=== PATIENT | male | born 1960 | race Caucasian/White ===

== ENCOUNTER → 2020-07-23 | Outpatient (CLI) | payer MEDICARE ==
--- NOTE | 2020-07-24 12:35 | US ---
EXAMINATION TYPE: US carotid duplex BILAT DATE OF EXAM: 07/23/2020 COMPARISON: NONE CLINICAL HISTORY: I63.9 Stroke. Stroke per order. Unable to obtain patient's history. Any possible pa st surgeries unknown. EXAM MEASUREMENTS: RIGHT: Peak Systolic Velocity (PSV) cm/sec ----- Right CCA: 83.9 ----- Right ICA: 101.3 ----- Right ECA: 207.9 ICA/CCA ratio: 1.2 RIGHT: End Diastole cm/sec ----- Right CCA: 21.2 ----- Right ICA: 32.7 ----- Right ECA: 37.9 LEFT: Peak Systolic Velocity (PSV) cm/sec ----- Left CCA: 51.7 ----- Left ICA: 58.6 ----- Left ECA: 121.4 ICA/CCA ratio: 1.1 LEFT: End Diastole cm/sec ----- Left CCA: 14.7 ----- Left ICA: 19.4 ----- Left ECA: 18.9 VERTEBRALS (direction of flow): Right Vertebral: Antegrade Left Vertebral: Antegrade Rhythm: Normal Elevated velocities within the right ECA. Patient unable to give any history; hyperechoic appearance along carotid wall. IMPRESSION: 1. Atheromatous plaquing without significant flow-limiting stenosis. Criteria for Assigning % of Stenosis / Diameter reduction (Estimation based on the indirect measurements of the internal carotid artery velocities (ICA PSV). 1. Normal (no stenosis)=ICA PSV < 125 cm/s: ratio < 2.0: ICA EDV<40 cm/s. 2. Less than 50% stenosis=ICA PSV < 125 cm/s: ratio < 2.0: ICA EDV<40 cm/s. 3. 50 to 69% stenosis=ICA PSV of 125 to 230 cm/s: ration 2.0 ? 4.0: ICA EDV 40-100 cm/s. 4. Greater than 70% stenosis to near occlusion= ICA PSV > 230 cm/s: ratio > 4.0: ICA EDV > 100 cm/s. 5. Near occlusion= ICA PSV velocities may be low or undetectable: variable ratio and ICA EDV. 6. Total occlusion=unable to detect flow.
== END | disposition home or self-care (01) ==
LOC: RADUSWWP 16:52
PROVIDERS: ATTEND Internal Medicine Geriatric Medicine
DX: I67.2 Cerebral atherosclerosis (principal)
CPT/HCPCS: 93880

== ENCOUNTER 2021-04-01 18:45 | Emergency (ER) | payer MEDICARE ==
[2021-04-01 18:59] VITALS: TEMP 98.1
--- NOTE | 2021-04-01 19:12 | ED ---
General Adult HPI - General Chief complaint: Chest Pain Stated complaint: Seizure, Cardiac Time Seen by Provider: 04/01/21 18:50 Source: patient, EMS Mode of arrival: EMS Limitations: altered mental status - History of Present Illness Initial comments: This is a 60-year-old male with a history of stroke in the past with residual right-sided deficits including right facial droop, right arm weakness, right leg weakness and aphasia who presents emergency department for possible seizure and chest pain. The states that around 5 PM the patient was indicating to her that he was uncomfortable. He appeared very diaphoretic and he was asking her to check his blood pressure. She states he then started pounding in his chest and appeared to be dyspneic. He was then not acting himself and seemed like he was very out of it so she called EMS. When EMS arrived they stated that he was coherent and he was following instructions however in route to the hospital the patient's eyes seem to deviate to the right and then they noted that he was having shaking his eyes. He was given 2.5 mg of Versed through his IV and the symptoms resolved. By the time the patient got to the emergency department he is now somewhat somnolent from the medication and difficult to get any history from. EMS stated that there was questionable EKG changes and he was given a nitro in route as well. The patient is really unable to provide any history at this time. Family states he is on Plavix/ASA. Has been having issues with BP control and increased his Losartan recently. He also had a fall a few days ago however family states he had no head trauma. - Related Data Home Medications Medication Instructions Recorded Confirmed Aspirin EC [Ecotrin Low Dose] 81 mg PO DAILY 04/01/21 04/01/21 Atorvastatin Calcium [Lipitor] 80 mg PO HS 04/01/21 04/01/21 Clopidogrel [Plavix] 75 mg PO DAILY 04/01/21 04/01/21 Cyclobenzaprine [Flexeril] 10 mg PO HS 04/01/21 04/01/21 DULoxetine HCL [Cymbalta] 60 mg PO HS 04/01/21 04/01/21 Folic Acid 1 mg PO DAILY 04/01/21 04/01/21 Ibuprofen [Motrin] 600 mg PO BID 04/01/21 04/01/21 Losartan Potassium [Cozaar] 25 mg PO DAILY 04/01/21 04/01/21 Losartan [Cozaar] 50 mg PO HS 04/01/21 04/01/21 Allergies Allergy/AdvReac Type Severity Reaction Status Date / Time No Known Allergies Allergy Verified 04/01/21 19:19 Review of Systems ROS Statement: Those systems with pertinent positive or pertinent negative responses have been documented in the HPI. ROS Other: All systems not noted in ROS Statement are negative. Past Medical History Past Medical History: CVA/TIA History of Any Multi-Drug Resistant Organisms: None Reported Past Psychological History: No Psychological Hx Reported General Exam - General Exam Comments Initial Comments: Constitutional: The patient is quite sleepy however will awaken to voice and follows some commands Appears comfortable Head: Normocephalic atraumatic Eyes: no conjunctival injection No scleral icterus EOMI, the right pupil is proximally 4 mm and reactive, the left pupil appears to be smaller and around 2- 3 mm and reactive, the patient does tend of look to the left more than the right however is able to look to the right Neck: No JVD Supple Heart: Regular rate rhythm normal S1-S2 no murmurs Lungs: Clear to auscultation bilaterally No wheezing No rales Abdomen: Soft nondistended nontender Extremities: Non edematous DP pulses intact Radial pulses intact Neuro: Patient is somnolent but arouses to voice and does follow commands, patient got an obvious right-sided facial droop, pupils are unequal as above, the patient does have a little bit of a leftward gaze however is able to look to the right. He's got spastic weakness in the right upper extremity and weakness in the right lower extremities which is chronic. The patient will hold his left arm up and left leg up off the ground. He will non destructive tester my left hand Psych: Appropriate mood and affect Limitations: altered mental status Course Vital Signs 04/01/21 04/01/21 04/01/21 18:48 19:00 19:30 Temperature 98.1 F Pulse Rate 130 H 129 H 108 H Respiratory 16 10 L 12 Rate Blood Pressure 143/110 153/107 104/57 O2 Sat by Pulse 90 L 97 97 Oximetry 04/01/21 20:00 Temperature Pulse Rate 91 Respiratory 15 Rate Blood Pressure O2 Sat by Pulse 94 L Oximetry - Reevaluation(s) Reevaluation #1: 04/01/21 19:40 CT head appears to have acute hemorrhage in the area of encephalomalacia in L parietal cortex. I do no see any midline shift or evidence for herniation. Page to radiologist to discuss. Reevaluation #2: Repeat EKG showing normal sinus rhythm with a rate of 89. Right bundle branch block is resolved. No ST changes or T-wave inversions. QTC is 481. Other intervals normal. No ectopy. 04/01/21 19:48 04/01/21 20:07 Reevaluation #3: 04/01/21 20:08 Pt currently at MS baseline. GCS 15. Had mild [place]. Spoke with Dr. Loya at [facility] ED who accepted transfer. Requested I speak with neurointerventionalist. Reevaluation #4: 04/01/21 20:[address] Morales who accepts transfer. Pt still at neurologic baseline. Recommends platelets. No other recommendations. EKG Findings - EKG Comments: EKG Findings:: EKG is showing sinus tachycardia with a right bundle-branch block. There does not appear to be any abnormal ST segment changes or T-wave inversions. QTC is 574. QRS is 138. No ectopy. Medical Decision Making - Lab Data Result diagrams: 04/01/21 19:08 04/01/21 19:08 Lab Results 04/01/21 04/01/21 04/01/21 Range/Units 19:08 19:08 19:08 WBC 17.4 H (3.8-10.6) k/uL RBC 4.25 L (4.30-5.90) m/uL Hgb 13.4 (13.0-17.5) gm/dL Hct 42.8 (39.0-53.0) % MCV 100.8 H (80.0-100.0) fL MCH 31.5 (25.0-35.0) pg MCHC 31.3 (31.0-37.0) g/dL RDW 13.6 (11.5-15.5) % Plt Count 315 (150-450) k/uL MPV 8.5 Neutrophils % 74 % Lymphocytes % 18 % Monocytes % 4 % Eosinophils % 2 % Basophils % 1 % Neutrophils # 12.9 H (1.3-7.7) k/uL Lymphocytes # 3.2 (1.0-4.8) k/uL Monocytes # 0.7 (0-1.0) k/uL Eosinophils # 0.3 (0-0.7) k/uL Basophils # 0.1 (0-0.2) k/uL Macrocytosis Slight PT 10.5 (9.0-12.0) sec INR 1.0 (<1.2) APTT 21.1 L (22.0-30.0) sec Sodium 128 L (137-145) mmol/L Potassium 3.3 L (3.5-5.1) mmol/L Chloride 97 L (98-107) mmol/L Carbon Dioxide 17 L (22-30) mmol/L Anion Gap 14 mmol/L BUN 7 L (9-20) mg/dL Creatinine 0.83 (0.66-1.25) mg/dL Est GFR (CKD-EPI)AfAm >90 (>60 ml/min/1.73 sqM) Est GFR (CKD-EPI)NonAf >90 (>60 ml/min/1.73 sqM) Glucose 295 H (74-99) mg/dL Plasma Lactic Acid Joe (0.7-2.0) mmol/L Calcium 8.6 (8.4-10.2) mg/dL Total Bilirubin 0.4 (0.2-1.3) mg/dL AST 33 (17-59) U/L ALT 21 (4-49) U/L Alkaline Phosphatase 85 (38-126) U/L Troponin I (0.000-0.034) ng/mL Total Protein 6.6 (6.3-8.2) g/dL Albumin 4.3 (3.5-5.0) g/dL Serum Alcohol <10 mg/dL 04/01/21 04/01/21 Range/Units 19:08 19:08 WBC (3.8-10.6) k/uL RBC (4.30-5.90) m/uL Hgb (13.0-17.5) gm/dL Hct (39.0-53.0) % MCV (80.0-100.0) fL MCH (25.0-35.0) pg MCHC (31.0-37.0) g/dL RDW (11.5-15.5) % Plt Count (150-450) k/uL MPV Neutrophils % % Lymphocytes % % Monocytes % % Eosinophils % % Basophils % % Neutrophils # (1.3-7.7) k/uL Lymphocytes # (1.0-4.8) k/uL Monocytes # (0-1.0) k/uL Eosinophils # (0-0.7) k/uL Basophils # (0-0.2) k/uL Macrocytosis PT (9.0-12.0) sec INR (<1.2) APTT (22.0-30.0) sec Sodium (137-145) mmol/L Potassium (3.5-5.1) mmol/L Chloride (98-107) mmol/L Carbon Dioxide (22-30) mmol/L Anion Gap mmol/L BUN (9-20) mg/dL Creatinine (0.66-1.25) mg/dL Est GFR (CKD-EPI)AfAm (>60 ml/min/1.73 sqM) Est GFR (CKD-EPI)NonAf (>60 ml/min/1.73 sqM) Glucose (74-99) mg/dL Plasma Lactic Acid Joe 6.0 H* (0.7-2.0) mmol/L Calcium (8.4-10.2) mg/dL Total Bilirubin (0.2-1.3) mg/dL AST (17-59) U/L ALT (4-49) U/L Alkaline Phosphatase (38-126) U/L Troponin I 0.026 (0.000-0.034) ng/mL Total Protein (6.3-8.2) g/dL Albumin (3.5-5.0) g/dL Serum Alcohol mg/dL Disposition Clinical Impression: ICH (intracerebral hemorrhage) Disposition: OTHER INSTITUTION NOT DEFINED Condition: Critical Referrals: Dante Carlson MD [Primary Care Provider] - 1-2 days - Out of Hospital Transfer - Req. Specs Out of Hospital Transfer - Requested Specifics: Other Emergency Center
[2021-04-01 19:19] LABS: Basophils # (A) 0.1 k/uL (0-0.2); Basophils % (A) 1 %; Eosinophils # (A) 0.3 k/uL (0-0.7); Eosinophils % (A) 2 %; HCT 42.8 % (39.0-53.0); HGB 13.4 gm/dL (13.0-17.5); Lymphocytes # (A) 3.2 k/uL (1.0-4.8); Lymphocytes % (A) 18 %; MCH 31.5 pg (25.0-35.0); MCHC 31.3 g/dL (31.0-37.0); MCV 100.8 fL (80.0-100.0); Macrocytosis Slight; Mean Platelet Volume 8.5; Monocytes # (A) 0.7 k/uL (0-1.0); Monocytes % (A) 4 %; Neutrophils # (A) 12.9 k/uL (1.3-7.7); Neutrophils % (A) 74 %; Platelet Count 315 k/uL (150-450); RBC 4.25 m/uL (4.30-5.90); RDW 13.6 % (11.5-15.5); WBC 17.4 k/uL (3.8-10.6)
[2021-04-01 19:31] LABS: ALT 21 U/L (4-49); AST 33 U/L (17-59); African American GFR (CKD) >90 (>60 ml/min/1.73 sqM); Albumin 4.3 g/dL (3.5-5.0); Alcohol <10 mg/dL; Alkaline Phosphatase 85 U/L (38-126); Anion Gap 14 mmol/L; Blood Urea Nitrogen 7 mg/dL (9-20); Calcium 8.6 mg/dL (8.4-10.2); Carbon Dioxide 17 mmol/L (22-30); Chloride 97 mmol/L (98-107); Glucose 295 mg/dL (74-99); Non-African American GFR(CKD) >90 (>60 ml/min/1.73 sqM); Potassium 3.3 mmol/L (3.5-5.1); Sodium 128 mmol/L (137-145); Total Bilirubin 0.4 mg/dL (0.2-1.3); Total Protein 6.6 g/dL (6.3-8.2)
--- NOTE | 2021-04-01 19:40 | XR ---
EXAMINATION TYPE: XR chest 1V portable DATE OF EXAM: 04/01/2021 COMPARISON: NONE HISTORY: Seizure and fall, trauma TECHNIQUE: Single frontal view of the chest is obtained. FINDINGS: The lung volumes are low. Perihilar increased attenuation is present, interstitium appears prominently. There is no evident pneumothorax or pleural effusion. Cardiac mediastinal silhouette wi thin normal limits accounting for technique. IMPRESSION: Difficult to exclude interstitial edema, pneumonia, correlate. Expiratory rotated exam. Follow-up as indicated.
[2021-04-01 19:43] LABS: Partial Thromboplastin Time 21.1 sec (22.0-30.0); Prothrombin Time 10.5 sec (9.0-12.0)
--- NOTE | 2021-04-01 19:47 | CT ---
EXAMINATION TYPE: CT brain wo con DATE OF EXAM: 04/01/2021 COMPARISON: None HISTORY: Altered mental status. CT DLP: 1188.4 mGycm Automated exposure control for dose reduction was used. Helical imaging through the brain. FINDINGS: There are lobular areas of increased attenuation within the patient's encephalomalacia in the left fr ontal brain. Volume loss is present within the left cerebrum, there is ex vacuo phenomenon of the lef t lateral ventricle. Cortical atrophy is present. Periventricular white matter shows patchy low atten uation. IMPRESSION: AMORPHOUS AREAS OF HEMORRHAGE WITHIN PATIENT'S ENCEPHALOMALACIA DUE TO CHRONIC CEREBROVASCULAR ACCIDE NT. 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
[2021-04-01] MEDS ORDERED: levETIRAcetam IV 1,000 MG in SALINE 1 100ML.BAG IVPB STA (20:27)
[2021-04-01 21:37] VITALS: BP 98/71; PULSE 74; RESP 18
== END 2021-04-01 21:40 | disposition other institution (70) ==
LOC: EC 18:45
DX: I61.9 Nontraumatic intracerebral hemorrhage, unspecified (principal); Z20.822 Contact with and (suspected) exposure to COVID-19; Z79.02 Long term (current) use of antithrombotics/antiplatelets; Z79.82 Long term (current) use of aspirin; Z86.73 Personal history of transient ischemic attack (TIA), and cerebral infarction without residual deficits
CPT/HCPCS: 99285 ×2; 93005; 86900; 86901; 80053; 83605; 84484; 85025; 85610; 85730; 86850; 87635; 71045; 70450; 96374; G0480; J1953; 80320